=== PATIENT | female | born 1980 | race Caucasian/White ===

== ENCOUNTER 2020-06-04 18:59 | Inpatient (IN) ==
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
[2020-06-04 20:19] LABS: Basophils # (auto) 0.02 K/uL (0-0.2); Basophils % (auto) 0.2 %; Eosinophils # (auto) 0.09 K/uL (0-0.5); Eosinophils % (auto) 0.9 %; Hematocrit (blood only) 38.3 % (37-47); Hemoglobin 13.2 g/dL (12.0-16.0); Immature Granulocytes # (auto) 0.02 K/uL (0.00-0.02); Immature Granulocytes % (auto) 0.2 %; Lymphocytes # (auto) 2.72 K/uL (1.2-3.4); Mean Corpuscular Hemoglobin 29.5 pg (25-34); Mean Corpuscular Hgb Conc 34.5 g/dL (32-36); Mean Corpuscular Volume 85.5 fL (80-100); Mean Platelet Volume 9.1 fL (7.4-10.4); Monocytes # (auto) 0.64 K/uL (0.11-0.59); Monocytes % (auto) 6.6 %; Neutrophils # (auto) 6.24 K/uL (1.4-6.5); Neutrophils % (auto) 64.1 %; Platelet Count 317 K/uL (130-400); RDW Coefficient of Variation 11.9 % (11.5-14.5); RDW Standard Deviation 37.2 fL (36.4-46.3); Red Blood Count 4.48 M/uL (4.2-5.4); White Blood Count 9.73 K/uL (4.8-10.8)
[2020-06-04 20:38] LABS: Albumin Level 3.8 gm/dl (3.4-5.0); BUN Creatinine Ratio 14.1 (10-20); Calcium 8.3 mg/dl (8.5-10.1); Creatinine Clr Calc Pharmacy 107.6 ml/min; Est GFR (African American) 118.3; Est GFR (Non-African American) 102.1; Potassium 3.5 mmol/L (3.5-5.1)
[2020-06-04 20:41] LABS: Acetaminophen < 2 ug/ml (10-30); Salicylate < 1.7 mg/dl (2.8-20)
[2020-06-04 20:43] LABS: Appearance Urine Cloudy (Clear); Bilirubin Urine Negative (Negative); Blood Urine 2+ (Negative); Color Urine Yellow; Epithelial Cell Urine Auto >30 /lpf (0-5); Glucose Urine UA Negative (Negative); Ketones Urine Negative (Negative); Leukocyte Esterase Urine Trace (Negative); Nitrite Urine Negative (Negative); Protein Urine Negative (Negative); RBC Urine Automated 0-4 /hpf (0-4); Urobilinogen Urine Negative (Negative); pH Urine 5.5 (4.5-7.5)
[2020-06-04 20:48] LABS: Albumin Globulin Ratio 1.2 (0.9-2); Bilirubin,Total 0.4 mg/dl (0.2-1); Globulin 3.3 gm/dl (2.5-4.0); Thyroid Stimulating Hormone 3.57 uIu/ml (0.300-4.500); Total Protein 7.1 gm/dl (6.4-8.2)
[2020-06-04 20:56] LABS: Bacteria Urine Automated 1+ (Negative); Cast Urine Automated 0 /lpf (0-5)
[2020-06-04 21:04] LABS: Amphetamines+Metham, Urine Neg (Neg); Barbiturates, Urine Neg (Neg); Benzodiazepine, Urine Neg (Neg); Cocaine, Urine Neg (Neg); MDMA (Ecstacy), Urine Pos (Neg); Methadone, Urine Neg (Neg); Opiate, Urine Pos (Neg); Phencyclidine, Urine Neg (Neg)
[2020-06-04] MEDS ORDERED: BISMUTH SUBSALICYLATE LIQD 236 ML PO PRN (23:09)
[2020-06-04] MEDS ORDERED: hydrOXYzine HCl 25 MG TAB PO PRN (23:09)
[2020-06-04] MEDS ORDERED: MAGNESIUM HYDROXIDE SUSP 30 ML UDC PO PRN (23:09)
[2020-06-04] MEDS ORDERED: SODIUM CHLORIDE 0.65% NA SOLN 45 ML (OCEAN) PRN (23:09)
[2020-06-04] MEDS ORDERED: ALUMINUM/MAGNESIUM SUSP 30 ML UDC PO PRN (23:09)
[2020-06-05] MEDS ORDERED: MELOXICAM 7.5 MG TAB PO STA (00:40)
[2020-06-05] MEDS ORDERED: lamoTRIgine 25 MG TAB PO STA (00:40)
[2020-06-05] MEDS ORDERED: BACLOFEN 10 MG TAB PO STA (00:40)
[2020-06-05] MEDS ORDERED: clonazePAM 1 MG TAB PO STA (00:40)
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
[2020-06-05] MEDS ORDERED: INFLUENZA ADMINISTRATION CHARGE ONE (08:00)
[2020-06-05] MEDS ORDERED: INFLUENZA VIRUS QUAD VACCINE 0.5 ML SYR IM ONE (08:00)
[2020-06-05] MEDS ORDERED: HYDROcodone/ACETAMINOPHEN 10/325 TAB PO PRN (08:39)
[2020-06-05] MEDS: hydrOXYzine HCl 25 MG TAB PO PRN (08:58)
[2020-06-05] MEDS ORDERED: lamoTRIgine 25 MG TAB PO SCH (09:00)
[2020-06-05] MEDS ORDERED: clonazePAM 1 MG TAB PO SCH (09:00)
[2020-06-05] MEDS ORDERED: MECLIZINE HCL 25 MG TAB PO PRN (09:04)
[2020-06-05] MEDS: BACLOFEN 10 MG TAB PO SCH ×2 (10:14→21:15)
[2020-06-05] MEDS: FAMOTIDINE 20 MG TAB PO SCH ×2 (10:14→21:16)
[2020-06-05] MEDS: TRIAMCINOLONE ACET 0.1% OINT 15 GM TUBE TOP SCH (10:15)
[2020-06-05] MEDS: ACETAMINOPHEN 325 MG TAB PO PRN (10:35)
[2020-06-05] MEDS ORDERED: lamoTRIgine 25 MG TAB PO ONE (12:00)
[2020-06-05] MEDS: clonazePAM 1 MG TAB PO SCH (21:15)
[2020-06-05] MEDS: MELOXICAM 7.5 MG TAB PO SCH (21:16)
[2020-06-06] MEDS: ACETAMINOPHEN 325 MG TAB PO PRN ×2 (00:26→20:45)
[2020-06-06] MEDS: lamoTRIgine 100 MG TAB PO SCH (08:22)
[2020-06-06] MEDS: FLUoxetine HCL 10 MG CAP PO SCH (08:22)
[2020-06-06] MEDS: BACLOFEN 10 MG TAB PO SCH ×2 (08:22→20:47)
[2020-06-06] MEDS: FAMOTIDINE 20 MG TAB PO SCH ×2 (08:22→20:46)
[2020-06-06] MEDS: clonazePAM 1 MG TAB PO SCH ×2 (08:22→20:46)
[2020-06-06] MEDS: TRIAMCINOLONE ACET 0.1% OINT 15 GM TUBE TOP SCH ×2 (08:24→21:09)
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
--- NOTE | 2020-06-06 13:29 | Communication Note ---
Date of Service: June 06, 2020 Summary of Neuropsychological Evaluation - Mian Cabello: [facility] Pt presented for neuropsychological testing for reported "bouts of explosive anger", "difficulty comprehending and retaining information" and "she is distracted easily and experiences difficulty reading." Psychiatric diagnoses prior to evaluation include: "anxiety, depression, bi-polar". No history of diagnosis of developmental delays per patient report. Methods of Assessment: - Claudy Adult Intelligence Scale; Claudy Memory Scale; Tamica Liang Executive Function System; Comprehensive [place]-Making Test; [place] Card Sorting Test; Rodrigues Depression Inventory; and Rodrigues Anxiety Inventory. See scanned in records for full neuropsychological evaluation documentation. Recommendations & Discussion: - Diagnoses: generalized anxiety disorder; major depressive disorder, recurrent, moderate; and unspecified trauma - stressor related disorder. - There was also reported concern for the potential of an early onset neurocognitive disorder, though deficits in cognitive functioning reportedly could also be related to stress, anxiety, and past trauma.
[2020-06-06] MEDS: hydrOXYzine HCl 25 MG TAB PO PRN (14:29)
[2020-06-06] MEDS: MELOXICAM 7.5 MG TAB PO SCH (20:46)
[2020-06-07] MEDS: TRIAMCINOLONE ACET 0.1% OINT 15 GM TUBE TOP SCH (08:37)
[2020-06-07] MEDS: BACLOFEN 10 MG TAB PO SCH ×2 (08:38→21:36)
[2020-06-07] MEDS: FAMOTIDINE 20 MG TAB PO SCH ×2 (08:38→21:37)
[2020-06-07] MEDS: FLUoxetine HCL 10 MG CAP PO SCH (08:38)
[2020-06-07] MEDS: lamoTRIgine 100 MG TAB PO SCH (08:38)
[2020-06-07] MEDS: clonazePAM 1 MG TAB PO SCH ×2 (08:48→21:36)
[2020-06-07] MEDS: ACETAMINOPHEN 325 MG TAB PO PRN (08:58)
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
[2020-06-07] MEDS: IBUPROFEN 600 MG TAB PO PRN (13:00)
[2020-06-07] MEDS: MELOXICAM 7.5 MG TAB PO SCH (21:36)
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
[2020-06-08] MEDS: FAMOTIDINE 20 MG TAB PO SCH ×2 (09:03→20:59)
[2020-06-08] MEDS: clonazePAM 1 MG TAB PO SCH (09:03)
[2020-06-08] MEDS: lamoTRIgine 100 MG TAB PO SCH (09:03)
[2020-06-08] MEDS: FLUoxetine HCL 10 MG CAP PO SCH (09:03)
[2020-06-08] MEDS: BACLOFEN 10 MG TAB PO SCH ×2 (09:03→20:56)
[2020-06-08] MEDS: IBUPROFEN 600 MG TAB PO PRN (09:04)
[2020-06-08] MEDS: TRIAMCINOLONE ACET 0.1% OINT 15 GM TUBE TOP SCH (09:11)
[2020-06-08 13:46] LABS: Codeine Urine NEGATIVE ng/mL (<50); Hydrocodone Urine 973 ng/mL (<50); Hydromor Urine NEGATIVE ng/mL (<50); MDA negative; MDEA negative; MDMA (Ecstasy) Urine, Confirm negative; Marijuana Quant, GCMS Urine 683 ng/mL (<5); Morphine Urine NEGATIVE ng/mL (<50); Norhydrocodone Conf Ur 989 ng/mL (<50); Noroxycodone Urine NEGATIVE ng/mL (<50); Oxycodone Urine NEGATIVE ng/mL (<50); Oxymorph Urine NEGATIVE ng/mL (<50)
[2020-06-08] MEDS: MELOXICAM 7.5 MG TAB PO SCH (20:56)
[2020-06-08] MEDS: clonazePAM 0.5 MG TAB PO SCH (20:56)
[2020-06-08] MEDS: ACETAMINOPHEN 325 MG TAB PO PRN (20:57)
[2020-06-09] MEDS: clonazePAM 0.5 MG TAB PO SCH ×2 (07:31→21:20)
[2020-06-09] MEDS: IBUPROFEN 600 MG TAB PO PRN (07:31)
[2020-06-09] MEDS: FLUoxetine HCL 10 MG CAP PO SCH (07:33)
[2020-06-09] MEDS: BACLOFEN 10 MG TAB PO SCH ×2 (07:33→21:21)
[2020-06-09] MEDS: lamoTRIgine 100 MG TAB PO SCH (07:33)
[2020-06-09] MEDS: FAMOTIDINE 20 MG TAB PO SCH ×2 (07:33→21:27)
[2020-06-09] MEDS: TRIAMCINOLONE ACET 0.1% OINT 15 GM TUBE TOP SCH (07:34)
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
[2020-06-09] MEDS: ACETAMINOPHEN 325 MG TAB PO PRN (11:03)
[2020-06-09] MEDS: hydrOXYzine HCl 25 MG TAB PO PRN (11:36)
[2020-06-09] MEDS: MELOXICAM 7.5 MG TAB PO SCH (21:20)
[2020-06-10] MEDS: hydrOXYzine HCl 25 MG TAB PO PRN (03:11)
[2020-06-10] MEDS: BACLOFEN 10 MG TAB PO SCH (08:25)
[2020-06-10] MEDS: FAMOTIDINE 20 MG TAB PO SCH (08:25)
[2020-06-10] MEDS: lamoTRIgine 100 MG TAB PO SCH (08:25)
[2020-06-10] MEDS: clonazePAM 0.5 MG TAB PO SCH (08:25)
[2020-06-10] MEDS: FLUoxetine HCL 10 MG CAP PO SCH (08:27)
[2020-06-10] MEDS: TRIAMCINOLONE ACET 0.1% OINT 15 GM TUBE TOP SCH (08:34)
--- NOTE | 2020-06-10 10:08 | Discharge Summary ---
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 Follow through with your scheduled aftercare appointments. If unable to keep an appointment, please call to reschedule. 2. Take your medication only as prescribed. Medication should not be changed or stopped without the approval of your doctor. In the event of worsening symptoms or concerns about side effects, contact your doctor immediately. 3. Utilize new healthy coping skills, anger management skills, and stress management skills learned during your hospitalization. Journal feelings and process them with a support person. Identify stressors or situations that may result in relapse, deterioration or inappropriate behaviors and develop a plan to deal with those issues. 4. If your coping skills are ineffective and you are in crisis, contact your outpatient providers for direction. If unable to reach your providers, please call the [facility] CRISIS LINE AT , go to the [facility] walk-in center at [address], [address], [place], or go to the closest Emergency Room. 5. Avoid alcohol and un-prescribed drugs. 6. You have been provided with the Mental Health Advance Directives Pamphlet for your review. AFTERCARE APPOINTMENTS: * Please call your insurance company prior to your scheduled appointment to confirm your aftercare providers are covered. Take your insurance information to your appointments. WHO TO CALL AND WHEN: Medical Emergencies: For questions or emergencies related to your hospital stay, please contact the Inpatient Behavioral Health Unit at [phone]. A military administrative technician is on-call 16/11 for the Behavioral Health Unit for emergencies At any time you feel your situation is an emergency, you may also call 911 i mmediately. Pending Studies at Discharge: No Stand-Alone Forms: My [facility], Smoking Cessation Medications and DC Order Prescriptions: New lamotrigine 100 mg Tablet 100 mg PO DAILY Qty: 30 RF: 0 hydroxyzine HCl 25 mg Tablet 25 mg PO DAILY PRN (Reason: anxiety) Qty: 14 RF: 0 Continued meclizine 25 mg Tablet 25 mg PO TID PRN (Reason: Dizziness Or Vertigo) RF: 0 baclofen 10 mg Tablet 10 mg PO BID RF: 0 fluoxetine [Prozac] 20 mg Capsule 30 mg PO QAM RF: 0 hydrocodone-acetaminophen 10-325 mg tablet 10 - 325 tab PO BID PRN (Reason: Pain) RF: 0 famotidine [Pepcid] 20 mg Tablet 20 mg PO BID RF: 0 triamcinolone acetonide 0.1 % ointment 0.1 applic TOPICAL DAILY RF: 0 meloxicam [Mobic] 15 mg Tablet 15 mg PO HS RF: 0 Changed clonazepam [Klonopin] 1 mg tablet 1 mg PO BID Qty: 0 RF: 0 Discontinued bupropion HCl [Wellbutrin XL] 150 mg tablet extended release 24 hr 150 mg PO DAILY RF: 0 lamotrigine [Lamictal] 25 mg tablet 25 mg PO BID RF: 0 Discharge Orders: Discharge Order (Routine); Ordered 06/10/20 Ordered By: Diana Santos Admission Data Admit Date/Time: 06/04/20 23:09 Attending Provider: Dianna Malhotra Admit Provider: Dianna Malhotra Primary Care Provider: Jose Daniel Riggs Other Interventions: PSY Interdisciplinary Discharge Planning Last Done: 06/10/20 09:26 Coding Level of Care Code 14246 D/C day mgmt > 30 min Diagnoses Bipolar disorder F31.9 Active/Remission status: remission status unspecified Generalized anxiety disorder F41.1 Cannabis use disorder, mild, abuse F12.10
== END 2020-06-10 11:58 | disposition home or self-care (01) | DRG 885 ==
LOC: ED 18:59 → 3S 23:09